=== PATIENT | female | born 2000 | race Caucasian/White ===

== ENCOUNTER 2019-02-24 08:33 | Emergency (ER) | payer OTHER ==
[2019-02-24] MEDS ORDERED: ONDANSETRON 4 MG/2 ML VIAL ONE (09:03)
[2019-02-24] MEDS ORDERED: NA CHLORIDE 0.9% 1,000 ML ONE (09:03)
[2019-02-24 09:18] LABS: Urine Blood NEGATIVE (NEG); Urine Glucose NEGATIVE (NEG); Urine Protein 1+ (NEG); Urine Specific Gravity 1.025 (1.005-1.030)
[2019-02-24 09:22] LABS: Basophils % 2.3 % (0-1.3); Hematocrit 40.2 % (36.0-45.0); Lymphocytes % 49.3 % (15.3-44.8); RBC Red Blood Cell Count 4.59 M/uL (3.86-4.86)
[2019-02-24 09:40] LABS: ALT/SGPT 19 U/L (12-78); AST/SGOT 12 U/L (15-37); Albumin 3.9 g/dL (3.4-5.0); Alkaline Phosphatase 115 U/L (45-117); BUN Blood Urea Nitrogen 9 mg/dL (7-18); Bicarbonate 27 mmol/L (21-32); Bilirubin Direct 0.1 mg/dL (0-0.2); Bilirubin Total 0.4 mg/dL (0.2-1.0); Glucose Level 109 mg/dL (74-106); Lipase 197 U/L (73-393); Potassium 3.7 mmol/L (3.5-5.1); Protein, Total 7.2 g/dL (6.4-8.2); Sodium Level 142 mmol/L (136-145)
--- NOTE | 2019-02-24 11:19 | ER ---
Nurse's Notes [facility] Name: Trudy Barakat Age: 18 yrs Sex: Female : 2000 Arrival Date: 02/24/2019 Time: 08:35 Bed 17 Private MD: Diagnosis: Vomiting;Syncope and collapse Presentation: 02/24 08:47 Presenting complaint: Patient states: has had several weeks where she is vomiting once iw a day, also does not have an appetite, when she does eat something she tends to eat too fast and then vomits, last night she had an episode of dizziness, thought she might be . 08:47 Method Of Arrival: Ambulatory iw 08:47 Transition of care: patient was not received from another setting of care. Onset of iw symptoms was February 24, 2019. Risk Assessment: Do you want to hurt yourself or someone else? Patient reports no desire to harm self or others. Initial Sepsis Screen: Does the patient meet any 2 criteria? No. Patient's initial sepsis screen is negative. Does the patient have a suspected source of infection? No. Patient's initial sepsis screen is negative. Care prior to arrival: None. 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 - Social history:: Smoking status: Patient uses tobacco products, denies chronic smoking, but will smoke occasionally. - Ebola Screening: : Patient negative for fever greater than or equal to 101.5 degrees Fahrenheit, and additional compatible Ebola Virus Disease symptoms Patient denies exposure to infectious person Patient denies travel to an Ebola-affected area in the 21 days before illness onset No symptoms or risks identified at this time. Screenin:00 Abuse screen: Denies threats or abuse. Nutritional screening: No deficits noted. aa5 Tuberculosis screening: No symptoms or risk factors identified. Fall Risk None identified. Assessment: 08:58 General: Appears comfortable, Behavior is calm, cooperative. Pain: Complains of pain in aa5 pelvis Pain does not radiate. Pain currently is 0 out of 10 on a pain scale. Quality of pain is described as sharp, Pain began 1-2 weeks ago Is intermittent. Neuro: Level of Consciousness is awake, alert, obeys commands, Oriented to person, place, time, situation. Cardiovascular: Heart tones S1 S2 present Rhythm is regular. Respiratory: Airway is patent Respiratory effort is even, unlabored, Respiratory pattern is regular, symmetrical. GI: Abdomen is flat, non-distended, Bowel sounds present X 4 quads. Abd is soft and non tender X 4 quads. Reports nausea, vomiting, since 1-2 weeks ago Patient currently denies diarrhea. : No signs and/or symptoms were reported regarding the genitourinary system. EENT: No signs and/or symptoms were reported regarding the EENT system. Derm: Skin is pink, warm \T\ dry. Musculoskeletal: Range of motion: intact in all extremities. 09:20 Reassessment: Patient is alert, oriented x 3, equal unlabored respirations, skin aa5 warm/dry/pink. Patient denies pain at this time. Pt notified of wait time for lab results, NS infusing, lights dimmed for comfort. Bed remains in low position, side rails x 1, call khan within reach. . 10:30 Reassessment: Patient appears in no apparent distress at this time. No changes from aj1 previously documented assessment. Patient and/or family updated on plan of care and expected duration. Pain level reassessed. Patient is alert, oriented x 3, equal unlabored respirations, skin warm/dry/pink. 11:36 Reassessment: Patient appears in no apparent distress at this time. No changes from aj1 previously documented assessment. Patient and/or family updated on plan of care and expected duration. Pain level reassessed. Patient is alert, oriented x 3, equal unlabored respirations, skin warm/dry/pink. Vital Signs: 09:04 BP 113 / 70; Pulse 82; Resp 16 S; Temp 98.2; Pulse Ox 99% on R/A; Pain 0/10; iw 09:27 BP 105 / 64; Pulse 68; Resp 16 S; Pulse Ox 100% on R/A; Pain 0/10; aa5 10:30 BP 103 / 72; Pulse 66; Resp 18; Pulse Ox 100% on R/A; aj1 11:37 BP 100 / 82; Pulse 68; Resp 16; Pulse Ox 100% on R/A; aj1 ED Course: 08:35 Patient arrived in ED. as 08:41 Tyrell Seay PA is PHCP. [facility] 08:41 Say Zuñiga MD is Attending Physician. [facility] 08:43 Kelly Talamantes, LEANNE is Primary Nurse. aa5 08:58 Urine collected: clean catch specimen, clear, and dark yellow. aa5 08:58 Arm band placed on. aa5 08:58 Patient has correct armband on for positive identification. Bed in low position. Call aa5 light in reach. Side rails up X 1. Adult w/ patient. 09:04 Triage completed. iw 09:15 Initial lab(s) drawn, by me, sent to lab. Inserted saline lock: 20 gauge in right em1 antecubital area, using aseptic technique. Blood collected. 10:00 Report given to Richelle Atkinson RN. aa5 11:19 Chavo Torres MD is Referral Physician. [facility] 11:37 No provider procedures requiring assistance completed. aj1 11:55 IV discontinued, intact, bleeding controlled, No redness/swelling at site. Pressure aj1 dressing applied. Administered Medications: 09:17 Drug: NS 0.9% 1000 ml Route: IV; Rate: 1 bolus; Site: right antecubital; aa5 11:36 Follow up: IV Status: Completed infusion; IV Intake: 1000ml aj1 09:17 Drug: Zofran 4 mg Route: IVP; Site: right antecubital; aa5 11:36 Follow up: Response: No adverse reaction; Nausea unchanged aj1 Intake: 11:36 IV: 1000ml; Total: 1000ml. aj1 Outcome: 11:18 Discharge ordered by . jm 11:55 Discharged to home ambulatory. aj1 11:55 Condition: good 11:55 Discharge instructions given to patient, Instructed on discharge instructions, follow up and referral plans. medication usage, Demonstrated understanding of instructions, follow-up care, medications, Prescriptions given X 1. 11:57 Patient left the ED. aj1 Signatures: Richelle Atkinson RN RN aj Tyrell Seay PA PA jmm Martinez, Amelia as Janeth Prado RN RN [facility] Kelly Talamantes, RN RN aa5 Corrections: (The following items were deleted from the chart) 09:30 09:04 Arm band placed on iw aa5
--- NOTE | 2019-02-24 11:19 | EDPHYS ---
Physician Documentation [facility] Name: Trudy Barakat Age: 18 yrs Sex: Female : 2000 Arrival Date: 02/24/2019 Time: 08:35 Bed 17 Private MD: ED Physician Say Zuñiga HPI: 02/24 08:57 This 18 yrs old Female presents to ER via Ambulatory with complaints of jmm Vomiting. 08:57 The patient presents to the emergency department with nausea, vomiting. Onset: The jmm symptoms/episode began/occurred gradually, 2 week(s) ago. Possible causes: unknown. The symptoms are aggravated by nothing. The symptoms are alleviated by nothing. This is a 18 year old female with no chronic medical conditions that presents to the ED with complaints of vomiting beginning weeks ago. Patient states symptoms are intermittent. Denies diarrhea. States she will occasionally develop bilateral pelvic pain. . 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 - Social history:: Smoking status: Patient uses tobacco products, denies chronic smoking, but will smoke occasionally. - Ebola Screening: : Patient negative for fever greater than or equal to 101.5 degrees Fahrenheit, and additional compatible Ebola Virus Disease symptoms Patient denies exposure to infectious person Patient denies travel to an Ebola-affected area in the 21 days before illness onset No symptoms or risks identified at this time. ROS: 08:57 Constitutional: Negative for fever, chills, and weight loss, Cardiovascular: Negative jmm for chest pain, palpitations, and edema, Respiratory: Negative for shortness of breath, cough, wheezing, and pleuritic chest pain. 08:57 Abdomen/GI: Positive for abdominal pain, nausea and vomiting. 08:57 All other systems are negative. Exam: 08:57 Constitutional: This is a well developed, well nourished patient who is awake, alert, jmm and in no acute distress. Head/Face: atraumatic. Eyes: EOMI, no conjunctival erythema appreciated ENT: Moist Mucus Membranes Neck: Trachea midline, Supple Chest/axilla: Normal chest wall appearance and motion. Cardiovascular: Regular rate and rhythm. No edema appreciated Respiratory: Normal respirations, no respiratory distress appreciated 08:57 Back: Normal ROM Skin: General appearance color normal MS/ Extremity: Moves all extremities, no obvious deformities appreciated, no edema noted to the lower extremities Neuro: Awake and alert, normal gait Psych: Behavior is normal, Mood is normal, Patient is cooperative and pleasant 08:57 Abdomen/GI: Inspection: abdomen appears normal, Bowel sounds: normal, Palpation: abdomen is soft and non-tender, in all quadrants. Vital Signs: 09:04 BP 113 / 70; Pulse 82; Resp 16 S; Temp 98.2; Pulse Ox 99% on R/A; Pain 0/10; iw 09:27 BP 105 / 64; Pulse 68; Resp 16 S; Pulse Ox 100% on R/A; Pain 0/10; aa5 10:30 BP 103 / 72; Pulse 66; Resp 18; Pulse Ox 100% on R/A; aj1 11:37 BP 100 / 82; Pulse 68; Resp 16; Pulse Ox 100% on R/A; aj1 MDM: 08:47 Patient medically screened. [facility] 11:16 Data reviewed: vital signs, nurses notes. Counseling: I had a detailed discussion with mirna the patient and/or guardian regarding: the historical points, exam findings, and any diagnostic results supporting the discharge/admit diagnosis, lab results, the need for outpatient follow up, to return to the emergency department if symptoms worsen or persist or if there are any questions or concerns that arise at home. ED course: Abdomen is benign on PE. Patient given early appendicitis return precautions. patient stated she has had multiple syncopal episodes over the past few weeks as well. Denies chest pain, but states having an occasional palpitations. EKG is normal. H/H normal. No SOB. Patient is advised to follow up with cardio for reevaluation and otherwise given strict return precautions. patient understood and agrees with the plan of care. . 02/24 08:57 Order name: Basic Metabolic Panel; Complete Time: 09:44 [facility] 02/24 08:57 Order name: CBC with Diff; Complete Time: 09:26 [facility] 02/24 08:57 Order name: Creatinine for Radiology; Complete Time: 09:36 [facility] 02/24 08:57 Order name: Hepatic Function; Complete Time: 09:44 [facility] 02/24 08:57 Order name: Lipase; Complete Time: 09:44 [facility] 02/24 09:03 Order name: Urine Dipstick--Ancillary (enter results) 02/24 08:57 Order name: IV Saline Lock; Complete Time: 09:15 [facility] 02/24 08:57 Order name: Labs collected and sent; Complete Time: 09:15 [facility] 02/24 08:57 Order name: Urine Dipstick-Ancillary (obtain specimen); Complete Time: 09:00 [facility] 02/24 09:00 Order name: Urine Test (obtain specimen); Complete Time: 09:01 [facility] 02/24 09:03 Order name: Urine --Ancillary (enter results); Complete Time: 09:26 02/24 10:34 Order name: EKG - Nurse/Tech; Complete Time: 11:02 [facility] Administered Medications: 09:17 Drug: NS 0.9% 1000 ml Route: IV; Rate: 1 bolus; Site: right antecubital; aa5 11:36 Follow up: IV Status: Completed infusion; IV Intake: 1000ml [facility] 09:17 Drug: Zofran 4 mg Route: IVP; Site: right antecubital; aa5 11:36 Follow up: Response: No adverse reaction; Nausea unchanged aj1 Disposition: 14:56 Co-signature as Attending Physician, Say Zuñiga MD I agree with the assessment and kdr plan of care. Disposition: 02/24/19 11:18 Discharged to Home. Impression: Vomiting, Syncope and collapse. - Condition is Stable. - Discharge Instructions: Nausea and Vomiting, Adult, Syncope, [id number]. - Prescriptions for Zofran ODT 4 mg Oral tablet,disintegrating - place 1 tablet by TRANSLINGUAL route every 4-6 hours; 20 tablet. - Medication Reconciliation Form, Thank You Letter, Antibiotic Education, Prescription Opioid Use form. - Follow up: Private Physician; When: 2 - 3 days; Reason: Recheck today's complaints, Continuance of care, Re-evaluation by your physician. Follow up: Chavo Torres MD; When: 2 - 3 days; Reason: Recheck today's complaints, Continuance of care, Re-evaluation by your physician. Signatures: Dispatcher [employer] Richelle Felder RN RN aj1 Say Zuñiga MD MD kdr Mickail, Joel, PA PA [facility] Janeth Praod RN RN iw Kelly Talamantes RN RN aa5 Corrections: (The following items were deleted from the chart) 11:19 11:18 02/24/2019 11:18 Discharged to Home. Impression: Vomiting; Syncope and collapse. [facility] Condition is Stable. Forms are Medication Reconciliation Form, Thank You Letter, Antibiotic Education, Prescription Opioid Use. Follow up: Private Physician; When: 2 - 3 days; Reason: Recheck today's complaints, Continuance of care, Re-evaluation by your physician. [facility] 11:57 11:19 02/24/2019 11:18 Discharged to Home. Impression: Vomiting; Syncope and collapse. aj1 Condition is Stable. Discharge Instructions: Nausea and Vomiting, Adult, Syncope, [id number]. Prescriptions for Zofran ODT 4 mg Oral tablet,disintegrating - place 1 tablet by TRANSLINGUAL route every 4-6 hours; 20 tablet. and Forms are Medication Reconciliation Form, Thank You Letter, Antibiotic Education, Prescription Opioid Use. Follow up: Private Physician; When: 2 - 3 days; Reason: Recheck today's complaints, Continuance of care, Re-evaluation by your physician. Follow up: Chavo Torres; When: 2 - 3 days; Reason: Recheck today's complaints, Continuance of care, Re-evaluation by your physician. [facility]
--- NOTE | 2019-02-24 14:26 | EKG ---
Test Date: 2019-02-24 Test Time: 11:04:35 Practice Nurse: LIZY MEASUREMENT RESULTS: Intervals: Rate: 58 SC: 124 QRSD: 84 QT: 412 QTc: 404 [place]: P: 17 SC: 124 QRS: 81 T: 68 INTERPRETIVE STATEMENTS: Sinus bradycardia with sinus arrhythmia Otherwise normal ECG No previous ECG available for comparison Electronically Signed On 02-24-19 14:26:15 CDT by Chavo Torres
== END 2019-02-24 11:57 | disposition home or self-care (01) ==
LOC: ER 08:33
DX: R55 Syncope and collapse (principal); Z72.0 Tobacco use
CPT/HCPCS: 96361; 93005; 85025; 80048; 36415; 81025; 80076; 81003; 83690; 96374; 99284; J7030; J2405

== ENCOUNTER 2020-06-10 07:46 | Emergency (ER) | payer OTHER ==
[2020-06-10] MEDS ORDERED: NA CHLORIDE 0.9% 1,000 ML ONE (08:27)
[2020-06-10 08:40] LABS: Absolute Lymphocytes (CBC) 2.2 K/uL (0.7-4.9); Basophils % 0.9 % (0-1.3); Hematocrit 37.6 % (36.0-45.0); Lymphocytes % 32.6 % (15.3-44.8); MPV 8.8 fL (7.6-11.3); RBC Red Blood Cell Count 4.56 M/uL (3.86-4.86)
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
--- OUTSIDE RECORDS SUMMARY | 2020-06-10 08:42 | XMS REPORT | Summary of Care ---
:2000 Author Organization [facility] Address [address] [place] [address] Care Team Providers Name Role Phone Charisse Prado Primary Care Provider Reason for Visit Reason Comments Lab Results Encounter Details Date Type Department Care Team Description [facility] [facility] [address] [place] [address] [address] [phone] [place], [place] [address] [phone] Allergies Active Allergy Reactions Severity Noted Date [...] 39 weeks gestation of 04/07/2018 05/02/20 18 [place] Hick's contraction 04/06/2018 04/09/2018 Rubella non-immune status, [...] this encounter Miscellaneous Notes Telephone Encounter - Nicolas Kaye RN - 05/07/2020 4:49 PM CDTCalled patient, advised rh- and educated patient on rhogam. Patient verbalized understanding. NICOLAS KAYE RN 05/07/2020 4:49 PM Telephone Encounter - Terri Bess WHCNP - 05/07/2020 2:21 PM CDT Please notify the patient she is RH negative she will need rhogam at 28 weeks and prn vaginal bleeding KAREN Pete 05/07/2020 2:24 PM documented in this encounter Plan of Treatment Date Type Specialty Care Team Description 06/04/2020 Routine Visit [facility] Sapphire Bess WHCNP [address] [place], [place] [address] [phone] Health Maintenance Due Date Last Done Comments MENINGOCOCCAL B VACCINES (1 06/07/2020 Post poned from of 2 - Risk Bexsero 2-dose 09/16 (Refused) series) CHLAMYDIA SCREENING 06/08/2020 06/08/2019, 11/08/2018, 03/22/2018 Depression Screening 05/06/2021 05/06/2020, 06/08/2019 WELL CARE VISIT: 12-05/06/2021 12/26/2012 Postponed from YEARS (yearly) 12/26/2013 (Preg [...] Effective Dates Phone Addre ss Type Group [place] [id number] 2018-[employer]en Medicaid HEALTH PLAN - [facility] MANAGED MEDICAID documented as of this encounter Advance Directives Name Relationship Healthcare Agent Communication Relationship Edwin Rojas Significant Other Health Care Agent Laney Barakat Grandparent [facility] [phone] Care Agent (Mobile)
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
--- OUTSIDE RECORDS SUMMARY | 2020-06-10 08:42 | XMS REPORT | Summary of Care ---
:1999 Author Organization [facility] Address [address] [place] [id number] Care Team Providers Name Role Phone Charisse Prado Primary Care Provider Reason for Referral (Routine) Status Reason Specialty Diagnoses / Referred By Referred To Procedures Contact Contact New Request Maternal Diagnoses Supervision of high risk , antepartum [place], Medicine Procedures CONSULT MATERNAL MEDICINE ULTRASOUND Preferred Location: [facility] [address] [facility] [place] [address] Reason for Visit Reason Comments Initial Visit Encounter Details Date Type Department Care Team Description 05/06/2020 Initial [facility] RMP- [place], Super vision of high risk , antepartum (Primary Dx); Visit [place] Terri Coker [facility] Multiparity; [address] Viral disease exposure; Street History of anxiety; [place], [place] History of depression; [id number] [place], [place] Nausea and vomiting during p regnancy; [phone] [id number] Vaginal yeast infection; [phone] Flu vaccine need Allergies Active Allergy Reactions Severity Noted Date [...] 39 weeks gestation of 04/07/2018 05/02/20 18 [place] Hick's contraction 04/06/2018 04/09/2018 Rubella non-immune status, [...] of this encounter Last Filed Vital Signs Vital Sign Reading Time Taken Comments Blood Pressure 105/72 05/06/2020 1:40 PM CDT Pulse 77 05/06/2020 1:40 PM CDT Temperature 36.7 C (98 F) 05/06/2020 1:40 PM CDT Respiratory Rate 16 05/06/2020 1:40 PM CDT Oxygen Saturation - - Inhaled Oxygen Concentration - - Weight 57.2 kg (126 lb) 05/06/2020 1:40 PM CDT Height 160 cm (5' 3") 05/06/2020 1:40 PM CDT Body Mass Index 22.32 05/06/2020 1:40 PM CDT documented in this encounter Progress Notes Terri Bess, WHIBETH - 05/06/2020 1:30 PM CDT Chief complaint: Chief Complaint Patient presents with Initial Visit HPI CC: Initial Visit Trudy Barakat is a 19 year old, , /White female. Patient's last menstrual period was 03/21/2020 (approximate). She is 6w4d with an suspected IUP. Her Estimated Date of Delivery: 12/26/20. She is being seen today for her first obstetrical visit. She complains today of: Vaginal irritation. She reports vaginal irritation which started 2 week(s) ago. There is associated vaginal discharge. Symptoms are relieved with vaginal creams. She reports no new partner(s). OB History Para Term AB Living 2 1 1 1 SAB TAB Ectopic Multiple Live Births 1 # Outcome Date GA Lbr Myke/2nd Weight Sex Delivery Anes PTL Lv 2 Current 1 Term 04/08/18 40w0d 7 lb 13 oz (3.544 kg) F NORMAL SPONT JOCELYN Histories OB History Para Term AB Living 2 1 1 1 SAB TAB Ectopic Multiple Live Births 1 # Outcome Date GA Lbr Myke/2nd Weight Sex Delivery Anes PTL Lv 2 Current 1 Term 04/08/18 40w0d 7 lb 13 oz (3.544 kg) F NORMAL SPONT JOCELYN Past Medical History: Diagnosis Date ADHD (attention deficit hyperactivity disorder) 11/22/2007 Anemia 01/2018 with , ongoing Anxiety ongoing, not on medication. Depression 2017 ongoing, not on medication. PTSD (post-traumatic stress disorder) 2008 ongoing, not on medication. STD (sexually transmitted disease) chlamydia, treated. Family History Problem Relation Age of Onset Depression Mother Psychiatry Mother No Significant Medical Problems Father Other - see comments Maternal Uncle autism Other - see comments Brother autism No Significant Medical Problems Maternal Aunt No Significant Medical Problems Paternal Aunt No Significant Medical Problems Paternal Uncle No Significant Medical Problems Maternal Grandmother No Significant Medical Problems Maternal Grandfather No Significant Medical Problems Paternal Grandmother No Significant Medical Problems Paternal Grandfather Arthritis NoFHx Asthma NoFHx defects NoFHx Breast Cancer NoFHx Colon Cancer NoFHx Ovarian Cancer NoFHx Uterine Cancer NoFHx Cancer NoFHx Diabetes NoFHx Genetic NoFHx Heart NoFHx High cholesterol NoFHx Hypertension NoFHx Mental retardation NoFHx Neurological NoFHx Osteoporosis NoFHx Family Status Relation Name Status Mo Alive Fa Alive MUnc (Not Specified) Bro Alive MAunt (Not Specified) PAunt (Not Specified) PUnc (Not Specified) MGMo Alive MGFa Alive PGMo Alive PGFa Alive NoFHx (Not Specified) Past Surgical History: Procedure Laterality Date THYROGLOSSAL CYST EXCISION 01/26/2009 Social History Socioeconomic History Marital status: Single Spouse name: Not on file Number of children: Not on file Years of education: Not on file Highest education level: Not on file Occupational History Not on file Social Needs Financial resource strain: Not on file Food insecurity Worry: Not on file Inability: Not on file Transportation needs Medical: Not on file Non-medical: Not on file Tobacco Use Smoking status: Never Smoker Smokeless tobacco: Never Used Tobacco comment: Dad smokes outside only, vapes on occassion Substance and Sexual Activity Alcohol use: Yes Alcohol/week: 1.0 standard drinks Types: 1 Cans of beer per week Comment: once per week Drug use: No Sexual activity: Yes Partners: Male control/protection: None Comment: last intercourse:05/04/2020 Lifestyle Physical activity Days per week: Not on file Minutes per session: Not on file Stress: Not on file Relationships Social connections Talks on phone: Not on file Gets together: Not on file Attends yazdanism service: Not on file Active member of club or organization: Not on file Attends meetings of clubs or organizations: Not on file Relationship status: Not on file Intimate partner violence Fear of current or ex partner: Not on file Emotionally abused: Not on file Physically abused: Not on file Forced sexual activity: Not on file Other Topics Concern Not on file Social History Narrative Pt denies current or past physical, sexual or emotional abuse. Patient states she feels safe at home. Patient lives with in-laws and fiancee. Patient has one dog in the home. Religous preference Muslim. Social History Substance and Sexual Activity Sexual Activity Yes Partners: Male control/protection: None Comment: last intercourse:05/04/2020 Labs Labs are pending. and No visits with results within 3 Month(s) from this visit. Latest known visit with results is: Office Visit on 06/08/2019 Component Date Value C. trachomatis Nucleic A* 06/08/2019 Negative N. gonorrhoeae Nucleic A* 06/08/2019 Negative Radiology Radiology pending. Allergies Trudy is allergic to vyvanse [lisdexamfetamine]. Medications Trudy has a current medication list which includes the following prescription(s): vitafol ultra, promethazine, and terconazole. Review of Systems Constitutional: Negative. HENT: Negative. Eyes: Negative. Respiratory: Negative. Breasts: Negative. Cardiovascular: Negative. Gastrointestinal: Negative. Genitourinary: Positive for vaginal discharge. Musculoskeletal: Negative. Skin: Negative. Neurological: Negative. Psychiatric/Behavioral: Negative. Endocrine: Endocrine negative BP 105/72 (BP Location: Right arm, Patient Position: Sitting, BP CUFF SIZE: Adult Medium) | Pulse 77 | Temp 36.7 C (98 F) (Oral) | Resp 16 | Ht 5' 3" (1.6 m) | Wt 126 lb (57.2 kg) | LMP 03/21/2020 (Approximate) | BMI 22.32 kg/m Pregravid BMI: Could not be calculated Physical Exam Vitals reviewed. Constitutional: She is oriented to person, place, and time. She appears well- developed and well-nourished. Her body habitus is normal. Neck: No tenderness and no mass. No thyroid nodules and no thyromegaly palpated. No neck adenopathy. Cardiovascular: Regular rate and rhythm. No gallop, no friction rub and no murmur auscultated. No peripheral edema present. Pulmonary/Chest: Breath sounds clear to auscultation. Normal inspiratory effort. Abdominal: Abdomen is soft. No mass palpated. No tenderness present. There is no hepatosplenomegaly,splenomegaly or hepatomegaly. There is no rigidity. No hernia palpated or inspected. Neuro/Psychiatric: She has a normal mood and affect. She is oriented to person, place, and time. Skin: No lesion, no rash and no ulceration present. Lymphadenopathy: No neck adenopathy present. No axillary adenopathy present. No inguinal adenopathy present. Breast: Right breast exhibits no mass, no nipple discharge and no tenderness. Left breast exhibits no mass, no nipple discharge and no tenderness. Breasts are symmetrical. Normal left breast and normalright breast Rectal: Rectal exam with normal anal tone. No mass, no external hemorrhoid and no internal hemorrhoid palpated or inspected. External genitalia: Normal external genitalia appropriate for age. Normal hair distribution. No labial lesion. Urethral meatus: Normal urethral meatus size, location and no lesion. No prolapse present. Normal urethral meatus Urethra: Normal urethra. No urethral tenderness, no mass and no urethral scarring palpated. Bladder: Bladder has no fullness, no mass palpated and no tenderness. Normal bladder Vagina:No lesion inspected. Normal estrogen effect. Normal support. Vaginal discharge found. No lesions in the vagina. +budding +vaginal discharge Cervix: Normal cervix. No lesion. No tenderness and no discharge present. Closed thick Uterus: Uterus is normal size, normal contour, normal position and non-tender. Normal uterus Adnexa: Right adnexa without tenderness, ovary enlargement or mass. Left adnexa without tenderness, ovary enlargement or mass. Normal left adnexa and normal right adnexa Anus/perineum: Normal perineum and normal anus. Assessment/Plan Return to clinic in 4 weeks. Patient desires NT study with usg, explained the need for blood draw after usg and again at 15-20 weeks[facility] and she verbalized understanding Supervision of high risk , antepartum (primary encounter diagnosis) Multiparity Comment: initial visit with labs and physical exam Plan: POCT TEST, POCT URINALYSIS W/O SPECIFIC GRAVITY, CBC WITH DIFF, GC & CHLAMYDIA AMPLIFIED ASSAY, HEPATITIS B SURFACE ANTIGEN, HIV 1/2 AG-AB WITH REFLEX, POCT URINALYSIS W SPECIFIC GRAVITY, WORKUP, BLOOD BANK, RUBELLA SCREEN (CHELLY) IGG, GALV ONLY - SYPHILIS IGG/IGM, URINE CULTURE, VZV ANTIBODY SCREEN, CONSULT MATERNAL MEDICINE ULTRASOUND Preferred Location: [place], [facility] 67-iron ps-folate no.1-dha (VITAFOL ULTRA) 29 mg iron- 1 mg-200 mg Cap Viral disease exposure Comment: as ordered Plan: SARS-COV-2 IGG History of anxiety History of depression Comment: reports stable mood Plan: as needed mgmt Nausea and vomiting during Comment: reports Plan: proMETHazine 25 mg tablet Vaginal yeast infection Comment: +budding Plan: terconazole 80 mg vaginal suppository Flu vaccine need Comment: as ordered Plan: FLU VACC(), 6+ MONTHS, IM, QUAD (FLUZONE/FLULAVAL/FLUARIX) This visit did not involve counseling and coordination that comprised more than 50% of the visit time. KAREN Pete 05/06/2020 2:33 PM Nicolas Kaye RN - 05/06/2020 1:30 PM CDTPatient is 19 year old female here for current . Patient is . 1) Previous delivery methods Vaginal 2) Patient is not experiencing cramping 3) Patient is not experiencing bleeding. 4) LMP 03/21/2020 5) Last Pap was: never Results: N/a 6) PPD candidate? No 7) Patient denies history of physical, emotional, or sexual abuse. Patient states she currently feels safe at home. 8) C/O patient having nausea and vomiting, constipation and recurrent yeast infection. 9) Would like flu vaccine? No, declines New ob packet given and discussed with patient. NICOLAS KAYE RN 05/06/2020 1:52 PM documented in this encounter Plan of Treatment Date Type Specialty Care Team Description 06/04/2020 Routine Visit OB Satellites Sapphire Bess WHCNP [address], [place] [address] [phone] Name Type Priority Associated Diagnoses Date/Ti me SARS-COV-2 IGG LAB Routine Viral disease exposure 2:40 PM CDT CBC WITH DIFF LAB Routine Supervision of high risk 2:40 PM CDT , antepartum GC & CHLAMYDIA LAB Routine Supervision of high risk 1 3:01 PM CDT AMPLIFIED ASSAY , antepartum HEPATITIS B SURFACE LAB Routine Supervision of high r isk 05/06/2020 2:40 PM CDT ANTIGEN , antepartum HIV 1/2 AG-AB WITH LAB Routine Supervision of high ri sk 05/06/2020 2:40 PM CDT REFLEX , antepartum RUBELLA SCREEN ([place]LLY) LAB Routine Supervision of hig h risk 05/06/2020 2:40 PM CDT IGG , antepartum GALV ONLY - SYPHILIS LAB Routine Supervision of high risk 05/06/2020 2:40 PM CDT IGG/IGM , antepartum URINE CULTURE LAB Routine Supervision of high risk 3:01 PM CDT , antepartum VZV ANTIBODY SCREEN LAB Routine Supervision of high r isk 05/06/2020 2:40 PM CDT , antepartum Name Type Priority Associated Diagnoses Order S chedule SARS-COV-2 IGG LAB Routine Viral disease exposure Exp ected: 05/06/2020, Expires: 2020 CBC WITH DIFF LAB Routine Supervision of high risk Ex pected: 05/06/2020, , antepartum s: 05/06/2021 GC & CHLAMYDIA LAB Routine Supervision of high risk E xpected: 05/06/2020, AMPLIFIED ASSAY , antepartum Exp ires: 05/06/2021 HEPATITIS B SURFACE LAB Routine Supervision of high r isk Expected: 05/06/2020, ANTIGEN , antepartum s: 05/06/2021 HIV 1/2 AG-AB WITH LAB Routine Supervision of high ri sk Expected: 05/06/2020, REFLEX , antepartum s: 05/06/2021 POCT URINALYSIS W LAB Routine Supervision of high ris k 20 Occurrences starting SPECIFIC GRAVITY , antepartum until 03/02/2021 WORKUP, BLOOD LAB Routine Supervision of hig h risk Expected: 05/06/2020, BANK , antepartum s: 05/06/2021 RUBELLA SCREEN ([place]LLY) LAB Routine Supervision of hig h risk Expected: 05/06/2020, IGG , antepartum s: 05/06/2021 GALV ONLY - SYPHILIS LAB Routine Supervision of high risk Expected: 05/06/2020, IGG/IGM , antepartum s: 05/06/2021 URINE CULTURE LAB Routine Supervision of high risk Ex pected: 05/06/2020, , antepartum s: 05/06/2021 VZV ANTIBODY SCREEN LAB Routine Supervision of high r isk Expected: 05/06/2020, , antepartum s: 05/06/2021 Health Maintenance Due Date Last Done Comments [...] Name Priority Date/Time Associated Diagnosis Comme nts FLU VACC Routine 05/06/2020 2:33 Flu vaccine need ([id number]), 6+ PM CDT MONTHS, IM, QUAD POCT URINALYSIS W/O Routine 05/06/2020 1:23 Supervision of hi gh Results for this SPECIFIC GRAVITY PM CDT risk , procedur e are in antepartum the results section. POCT TEST Routine 05/06/2020 1:23 Supervision of hi gh Results for this PM CDT risk , procedure ar e in antepartum the results section. documented in this encounter Results POCT URINALYSIS W/O SPECIFIC GRAVITY (05/06/2020 1:23 PM CDT) Pathologist Sig nature POCT PH U 7 5 - 8 mg/dl POCT U LEUK EST 2+ Negative - Negative POCT U NIT Neg Negative - Negative POCT U PROT Trace Negative - Negative POCT U GLU Neg Negative - Negative POCT U KETONE Large Negative - Negative POCT U BLD Trace Negative - Negative Specimen Urine - URINE, CLEAN CATCH POCT TEST (05/06/2020 1:23 PM CDT) Pathologist Sig nature POCT PREG Positive On board controls acceptable Yes with C Line POCT PREG LOT # POCT PREG TEST DATE Specimen Urine - URINE, CLEAN CATCH documented in this encounter Visit Diagnoses Diagnosis Supervision of high risk , ante - Primary Multiparity Viral disease exposure Contact with or exposure to other viral diseases History of anxiety Personal history of other mental disorde r History of depression Personal history of other mental disorde r Nausea and vomiting during Vaginal yeast infection Candidiasis of vulva and vagina Flu vaccine need Need for prophylactic vaccination and in oculation against influenza documented in this encounter Insurance Payer Benefit Plan / Subscriber ID Effective Dates Phone Addre ss Type Group [place] [employer] [place] [id number] 2018-Presen Medicaid HEALTH PLAN - HEALTH MANAGED MEDICAID documented as of this encounter Advance Directives Name Relationship Healthcare Agent Communication Relationship Edwin Rojas Significant Other Health Care Agent Laney Barakat Grandparent [facility] [phone] Care Agent (Mobile)
--- OUTSIDE RECORDS SUMMARY | 2020-06-10 08:43 | XMS REPORT | Summary of Care ---
:2000 Author Organization [facility] Address [address] [place] [id number] Care Team Providers Name Role Phone Charisse Prado Primary Care Provider Reason for Visit Reason Comments Care Encounter Details Date Type Department Care Team Description 06/04/[address] [facility]- [place], Super vision of high risk , antepartum (Primary Dx); Visit [place] Terri Coker, WHCNP Multiparity; [address] Suscep tible to varicella (non-immune), currently ; [facility] Rubella non-immune status, antepartum; [place], [place] SHARIF A Rh negative state in antepartum period [id number] [place], [place] [phone] Allergies Active Allergy Reactions Severity Noted Date Comments Lisdexamfetamine Other - See comments 12/26/2012 Zeina cidal ideation documented as of this encounter (statuses as of 06/04/2020) Medications Medication Sig Dispensed Refills Start Date End Date Status proMETHazine 25 mg Take 1 tablet by 30 tablet 0 05/06/2020 Active tabletIndications: mouth every 6 Nausea and vomiting (six) hours as during needed for Nausea and Vomiting (N/V). PNV 67-iron ps-folate Take 1 Each by 30 capsule 9 05/06/2020 Active no.1-dha (VITAFOL mouth daily. ULTRA) 29 mg iron- 1 mg-200 mg CapIndications: Supervision of high risk , antepartum documented as of this encounter (statuses as of 06/04/2020) Active Problems Problem Noted Date Rh negative [...] as of this encounter (statuses as of 06/04/2020) Resolved Problems Problem Noted Date Resolved Date Well woman exam 06/08/2019 05/06/2020 Contraceptive management 06/08/2019 05/06/2020 Lactating mother 02/02/2019 06/08/2019 Vaginal discharge 11/08/2018 02/02/2019 care and examination of lactating mother 05/02/20 18 02/02/2019 Normal spontaneous vaginal delivery 04/09/201804/18 Liveborn by vaginal delivery 04/09/201804/18 39 weeks gestation of 04/07/2018 05/02/20 18 Mozier Hick's contraction 04/06/2018 04/09/2018 Rubella non-immune status, antepartum 03/23/2018 Overview: Address in Maternal varicella, non-immune 03/23/2018 8 Overview: Address in Supervision of high risk , antepartum 03/22/2018 05/02/2018 Nausea and vomiting during 03/22/2018 Primigravida in third trimester 03/22/2018 05/24/20 18 Rh negative state in antepartum period, third trimester 10/201705/24/2018 documented as of this encounter (statuses as of 06/04/2020) Immunizations Name Administration Dates Next Due DTAP [...] been in contact with No / Unsure 06/04/2020 9:27 AM PUBLISHER ASSISTANT someone who was confirmed or suspected to have Coronavirus / COVID-19? documented as of this encounter Last Filed Vital Signs Vital Sign Reading Time Taken Comments Blood Pressure 119/75 06/04/2020 9:27 AM PUBLISHER ASSISTANT Pulse 83 06/04/2020 9:27 AM PUBLISHER ASSISTANT Temperature 37.2 C (98.9 F) 06/04/2020 9:27 AM PUBLISHER ASSISTANT Respiratory Rate 16 06/04/2020 9:27 AM PUBLISHER ASSISTANT Oxygen Saturation - - Inhaled Oxygen Concentration - - Weight 57.2 kg (126 lb) 06/04/2020 9:27 AM PUBLISHER ASSISTANT Height 160 cm (5' 3") 06/04/2020 9:27 AM PUBLISHER ASSISTANT Body Mass Index 22.32 06/04/2020 9:27 AM PUBLISHER ASSISTANT documented in this encounter Progress Notes Terri Bess, WHCNP - 06/04/2020 9:15 AM CST Chief complaint: Chief Complaint Patient presents with Care HPI CC: Follow Up Visit Trudy Barakat is a 19 year old, , /White female. Patient's last menstrual period was 03/21/2020 (approximate). She is 10w5d with an intrauterine . Her estimated date of delivery is 12/26/2020, by Last Menstrual Period. She has no complaints today. Histories OB History Para Term AB Living [...] ongoing Anxiety ongoing, not on medication. Depression 2016 ongoing, not on medication. PTSD (post-traumatic stress disorder) 2007 ongoing, not on medication. STD (sexually transmitted [...] file Gets together: Not on file Attends mosque service: Not on file Active member of [...] one dog in the home. Religous preference [employer]. Social History Substance and Sexual Activity Sexual Activity Yes Partners: Male control/protection: None Comment: last intercourse:05/04/2020 Labs No new labs and Initial Visit on 05/06/2020 Component Date Value POCT PREG 05/06/2020 Positive On board controls accept* 05/06/2020 Yes POCT PH U 05/06/2020 7 POCT U LEUK EST 05/06/2020 2+ POCT U NIT 05/06/2020 Neg POCT U PROT 05/06/2020 Trace POCT U GLU 05/06/2020 Neg POCT U KETONE 05/06/2020 Large POCT U BLD 05/06/2020 Trace ABO & RH 05/06/2020 B NEGATIVE IAT 05/06/2020 Negative CoV-2 IgG 05/06/2020 Negative WBC 05/06/2020 5.79 RBC 05/06/2020 4.19 HGB 05/06/2020 11.6 HCT 05/06/2020 36.2 MCV 05/06/2020 86.4 MCH 05/06/2020 27.7 MCHC 05/06/2020 32.0 RDW-SD 05/06/2020 44.5 RDW-CV 05/06/2020 14.1 PLT 05/06/2020 302 MPV 05/06/2020 11.0 NRBC/100 WBC 05/06/2020 0.0 NRBC x10^3 05/06/2020 <0.01 GRAN MAT (NEUT) % 05/06/2020 49.3 IMM GRAN % 05/06/2020 0.20 LYMPH % 05/06/2020 39.6 MONO % 05/06/2020 7.9 EOS % 05/06/2020 2.1 BASO % 05/06/2020 0.9 GRAN MAT x10^3(ANC) 05/06/2020 2.86 IMM GRAN x10^3 05/06/2020 <0.03 LYMPH x10^3 05/06/2020 2.29 MONO x10^3 05/06/2020 0.46 EOS x10^3 05/06/2020 0.12 BASO x10^3 05/06/2020 0.05 C. trachomatis Nucleic A* 05/06/2020 Negative N. gonorrhoeae Nucleic A* 05/06/2020 Negative HBsAg 05/06/2020 Negative HBsAg Semi-Quantitative 05/06/2020 0.08 HIV 1/2 Ag-Ab with Reflex 05/06/2020 Negative HIV Semi-quantitative 05/06/2020 0.11 Rubella screen IgG 05/06/2020 Equivocal Syphilis IgG/IgM 05/06/2020 Non-reactive URINE CULTURE 05/06/2020 > 100,000 CFU/mL mixed aerobic organisms - suggests endogenous microbial contamination VZV IgG antibody 05/06/2020 Negative COVID DMT Interpretation 05/06/2020 Value:Interpretation/Recommendation Tests (PCR) for Active Infection by COVID-19 Virus: This patient was never tested for an active COVID-19 infection by PCR. Tests for IgM and/or IgG Antibodies to COVID-19 Virus: A. A test for IgM antibody to the COVID-19 virus would be highly informative at this time. IgM antibodies to the COVID-19 virus identified in a high performing test, usually an CHELLY or chemiluminescence based assay, should appear in most patients who are truly infected within approximately one week from the onset of symptoms, and in nearly all patients by to three weeks after symptoms begin. If the IgM test is positive, it is highly probable that the patient has been infected with the virus at some point. IgM antibodies may have developed since the first IgG antibody test was performed. B. A blood sample collected from this patient revealed a negative test for IgG antibodies to theCOVID-19 virus. If the patient experienced symptoms more than 2 to 3 weeks earlier, this most likely indicates that the patient was not infected with the COVID-19 virus. C. IgG antibodies to the COVID-19 virus often appear after the presence of IgM antibodies. Therefore, another possible explanation is that it may be too early in the course of this patient's infection for the IgG response to occur if symptoms were within the past 2 to 3 weeks. It would be informative to test the patient at least 3 to 4 weeks post onset of symptoms for both IgG and IgM antibodies.IgM antibodies may have developed since the first IgG antibody test was performed. At this time, it is not known if production of antibodies indicates whether the patient is immune to future infectionswith the COVID-19 virus. D. Some patients who have been positive for COVID-19 with a nasopharyngeal swab specimen do not generate IgG antibodies to the virus. It is possible that patients with a positive PCR test who have no symptoms or mild symptoms do not generate antibodies. It is also possible that the antibodies were not detected because they were not present at the time the blood sample was taken. E. Although it is uncommon, some patients cannot ever mount an antibody response to infectious agents, such as COVID-19. If there are persistently negative results for IgM and IgG antibodies, thismay be the explanation. COVID Results 05/06/2020 CoV-2 IgG (no units) Date Value 05/06/2020 Negative Radiology No new radiology. Allergies Trudy is allergic to vyvanse [lisdexamfetamine]. Medications Trudy has a current medication list which includes the following prescription(s): vitafol ultra and promethazine. Review of Systems Constitutional: Negative. HENT: Negative. Eyes: Negative. Respiratory: Negative. Breasts: Negative. Cardiovascular: Negative. Gastrointestinal: Negative. Genitourinary: Negative. Musculoskeletal: Negative. Skin: Negative. Neurological: Negative. Psychiatric/Behavioral: Negative. Endocrine: Endocrine negative BP 119/75 (BP Location: Right arm, Patient Position: Sitting, BP CUFF SIZE: Adult Medium) | Pulse 83 | Temp 37.2 C (98.9 F) (Oral) | Resp 16 | Ht 5' 3" (1.6 m) | Wt 126 lb (57.2 kg) | LMP 03/21/2020 (Approximate) | BMI 22.32 kg/m Pregravid BMI: Could not be calculated Physical Exam PHYSICAL: General Exam: Neurological: Normal Abdomen: Normal gravid Extremities: Normal Pelvic Exam: Uterus: 8 Weeks Assessment/Plan Return to clinic in 4 weeks. Denies zika virus risk, signs and symptoms such as fever,rash,joint pain, conjunctivitis (red eyes),muscle pain, headaches; outside [place] travel to areas affected by zika, and FOB exposure to zika. Educated on use of mosquito repellent. Supervision of high risk , antepartum (primary encounter diagnosis) Multiparity Comment: routine Plan: POCT URINALYSIS W SPECIFIC GRAVITY Susceptible to varicella (non-immune), currently Rubella non-immune status, antepartum Comment: no mgmt today Plan: address pp Rh negative state in antepartum period Comment: Plan: address 28 weeks This visit did not involve counseling and coordination that comprised more than 50% of the visit time. KAREN Pete 06/04/2020 9:47 AM ISHER ASSISTANT documented in this encounter Plan of Treatment Date Type Specialty Care Team Description 06/17/2020 Home School Liaison Officer Visit Maternal Medicine 06/17/2020 Home School Liaison Officer Visit [facility], [facility] 07/02/2020 Routine Visit [facility] Sapphire Bess WHCNP [address], [place] [address] [phone] Health Maintenance Due Date Last Done Comments MENINGOCOCCAL B VACCINES (1 06/07/2020 Post poned from of 2 - Risk Bexsero 2-dose 09/16 (Refused) series) CHLAMYDIA SCREENING 05/06/2021 05/06/2020, 06/08/2019, 11/08/2018, Additional history exists Depression Screening 05/06/2021 05/06/2020, 06/08/2019 WELL CARE [...] Name Priority Date/Time Associated Diagnosis Comme nts POCT URINALYSIS Routine 06/04/2020 9:28 AM Supervision of [facility] Results for this PUBLISHER ASSISTANT risk , procedure ar e in antepartum the results section. documented in this encounter Results POCT URINALYSIS W SPECIFIC GRAVITY (06/04/2020 9:28 AM PUBLISHER ASSISTANT) Pathologist Sig nature POCT U SP GRAV . 1.005 - 1.025 mg/dl POCT PH U . 5 - 8 mg/dl POCT U LEUK EST . Negative - Negative POCT U NIT . Negative - Negative POCT U PROT Trace Negative - Negative POCT U GLU Neg Negative - Negative POCT U KETONE . Negative - Negative POCT U UROBILI . 0.2 - 1 mg/dl POCT U BILI . Negative - Negative POCT U BLD . 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
--- OUTSIDE RECORDS SUMMARY | 2020-06-10 08:43 | XMS REPORT | Summary of Care ---
:2000 Author Organization [facility] Address [address] [place] [address] Care Team Providers Name Role Phone Charisse Prado Primary Care Provider Reason for Visit Reason Comments Assessment Results Encounter Details Date Type Department Care Team Description 05/24/2020 Telephone [facility]- Terri Bess, Assessment; Results [facility] [address] [place] [address] [address] [place] [address] [phone] Allergies Active Allergy Reactions Severity Noted Date Comments Lisdexamfetamine Other - See comments 12/26/2012 Zeina cidal ideation documented as of this encounter (statuses as of 05/24/2020) Medications Medication Sig Dispensed Refills Start Date [...] as of this encounter (statuses as of 05/24/2020) Active Problems Problem Noted Date Rh negative [...] as of this encounter (statuses as of 05/24/2020) Resolved Problems Problem Noted Date Resolved Date [...] as of this encounter (statuses as of 05/24/2020) Immunizations Name Administration Dates Next Due DTAP [...] Telephone Encounter - Nicolas Kaye RN - 05/24/2020 11:46 AM CSTCalled patient, patient having tiredness and fatigue. Reviewed labs, advised not anemic. Educated on taking vitamins and encouraged iron rich foods/vitamin c. Advised symptoms normal in and advised 1 cup of coffee can be consumed daily. Patient verbalized understanding. NICOLAS KAYE RN 05/24/2020 11:47 AM T BLANKER Telephone Encounter - LETY Dupont - 05/24/2020 10:45 AM CSTPt is requesting call back, states she is very tired and wants to know what blood results from labs. Please call [phone] (home) documented in this encounter Plan of Treatment Date Type Specialty Care Team Description 06/04/2020 [facility] [address], [place] [address] [phone] 06/17/2020 Community Organization Aide Visit Maternal Medicine 06/17/2020 Community Organization Aide [facility] Maintenance Due Date Last Done Comments [...] Effective Dates Phone Addre ss Type Group [place] [facility] [place] [facility] [id number] 2018-[employer] Medicaid HEALTH PLAN - [facility] MANAGED MEDICAID documented as of this encounter Advance Directives Name Relationship Healthcare Agent Communication Relationship Edwin Rojas Significant Other Health Care Agent Laney Barakat Grandparent [facility] Care Agent (Mobile)
[2020-06-10 09:14] LABS: BUN Blood Urea Nitrogen 6 mg/dL (7-18); Bicarbonate 26 mmol/L (21-32); Glucose Level 103 mg/dL (74-106); HCG, Quantitative 6906 mIU/mL (1-3); Potassium 3.8 mmol/L (3.5-5.1); Sodium Level 137 mmol/L (136-145)
[2020-06-10 09:15] LABS: Urine Blood NEGATIVE (NEG); Urine Glucose NEGATIVE (NEG); Urine Protein NEGATIVE (NEG); Urine Specific Gravity >1.030 (1.005-1.030)
--- NOTE | 2020-06-10 10:02 | RAD REPORT ---
EXAM DESCRIPTION: US - Transvaginal OB - 06/10/2020 9:39 am CLINICAL HISTORY: ABD CRAMPING, COMPARISON: OB Complete dated 03/03/2018 FINDINGS: A single gestational sac is seen within the uterus. The gestational sac is somewhat large in size and mildly irregularly-shaped. No definitive yolk sac or embryo or other components see n within the sac. The maternal adnexa are within normal limits. The left ovary was obscured by bowel gas. The right ova ry measures 4.0 x 3.0 cm. Normal blood flow seen to the right ovary. IMPRESSION: Large gestational sac is noted without yolk sac or embryo detected. This could indicate a blighted ovum. However, follow-up ultrasound would be recommended in 7 days as well as serial HCG l evel measurements for further assessment.
--- NOTE | 2020-06-10 10:35 | ER ---
Nurse's Notes [facility] Name: Trudy Barakat Age: 19 yrs Sex: Female : 2000 Arrival Date: 06/10/2020 Time: 07:47 Bed 8 Private MD: Diagnosis: Threatened ;Blighted ovum and nonhydatidiform mole;Missed Presentation: 06/10 08:03 Chief complaint: Patient states: is approx 11 weeks , started having some iw cramping yesterday, having bleeding after sex this morning and now is having a lot of pressure, bleeding is a little more than a period , pain 7/10, G2, P1. Coronavirus screen: At this time, the client does not indicate any symptoms associated with coronavirus-19. Ebola Screen: Patient negative for fever greater than or equal to 101.5 degrees Fahrenheit, and additional compatible Ebola Virus Disease symptoms Patient denies exposure to infectious person. Patient denies travel to an Ebola-affected area in the 21 days before illness onset. No symptoms or risks identified at this time. Initial Sepsis Screen: Does the patient meet any 2 criteria? No. Patient's initial sepsis screen is negative. Does the patient have a suspected source of infection? No. Patient's initial sepsis screen is negative. Risk Assessment: Do you want to hurt yourself or someone else? Patient reports no desire to harm self or others. Onset of symptoms was June 09, 2020. 08:03 Method Of Arrival: Ambulatory iw 08:03 Acuity: BRIGIDO 3 iw TRAFFIC CONTROL SUPERVISOR: 08:10 2, Full Term 1, Premature 0, 0, Living 1, LMP 03/21/2020 vg1 10:30 2, Full Term 1, Premature 0, 0, Living 1 tad Historical: - Allergies: 08:06 No Known Allergies; iw - Home Meds: 08:06 oral oral daily [Active]; iw - PMHx: 08:06 None; iw - PSHx: 08:06 None; iw - Immunization history:: Adult Immunizations up to date. - Social history:: Smoking status: Patient denies any tobacco usage or history of. - Family history:: not pertinent. Screenin:10 Abuse screen: Denies threats or abuse. Nutritional screening: No deficits noted. vg1 Tuberculosis screening: No symptoms or risk factors identified. Fall Risk No fall in past 12 months (0 pts). No secondary diagnosis (0 pts). IV access (20 points). Ambulatory Aid- None/Bed Rest/Nurse Assist (0 pts). Gait- Normal/Bed Rest/Wheelchair (0 pts) Mental Status- Oriented to own ability (0 pts). Total Simpson Fall Scale indicates No Risk (0-24 pts). Assessment: 08:10 General: Appears in no apparent distress. Behavior is anxious, crying, Reports fatigue vg1 for 12-24 hours. Pain: Complains of pain in lower abdomen Pain currently is 7 out of 10 on a pain scale. Quality of pain is described as crampy, pressure, Pain began cramping began yesterday 06/09/2020. Stated bleeding and pressure began this morning after having intercourse. Neuro: Level of Consciousness is awake, alert, obeys commands, Oriented to person, place, time, situation. Cardiovascular: Capillary refill < 3 seconds Patient's skin is warm and dry. Respiratory: Airway is patent Respiratory effort is even, unlabored, Respiratory pattern is regular, symmetrical. GI: Abd is non tender Reports cramping, nausea, Patient currently denies diarrhea. : No signs and/or symptoms were reported regarding the genitourinary system. EENT: No signs and/or symptoms were reported regarding the EENT system. Derm: Skin is pink, warm \T\ dry. Musculoskeletal: Range of motion: intact in all extremities. 08:52 Reassessment: Patient reports 'slight tingling and numbness' in DANNA hands and DANNA feet. vg1 Patient also states 'feels pressure' near her bottom. Notified Provider. 08:58 Reassessment: Pt taken to US. vg1 09:40 Reassessment: No changes from previously documented assessment. Patient and/or family vg1 updated on plan of care and expected duration. Pain level reassessed. Patient is alert, oriented x 3, equal unlabored respirations, skin warm/dry/pink. Patient back from US. Patient states having lower back pain that radiates down to right leg. Notified Provider. 10:35 Reassessment: No changes from previously documented assessment. Patient and/or family vg1 updated on plan of care and expected duration. Pain level reassessed. Patient is alert, oriented x 3, equal unlabored respirations, skin warm/dry/pink. Pending d/c due to awaiting RhoGAM from pharmacy. 11:53 Reassessment: Patient stated that she called her doctors office and they said for her vg1 to come in and they will give her the RohGAM. Patient was notified that it would take about another hour for it to be ready, and patient stated she didn't want to wait much longer since the doctor's office stated they would give it to her once she showed up. Patient stated she was going straight to doctor's office from ED. Provider notified. Vital Signs: 08:00 BP 110 / 72; Pulse 79; Resp 16; Pulse Ox 97% on R/A; vg1 08:03 BP 110 / 72; Pulse 79; Resp 16; Temp 98.0; Pulse Ox 98% on R/A; Pain 7/10; iw 09:37 BP 106 / 78; Pulse 85; Resp 18; Pulse Ox 99% on R/A; vg1 10:00 BP 97 / 70; Pulse 80; Resp 18; Pulse Ox 100% on R/A; vg1 10:30 BP 115 / 89; Pulse 104; Resp 18; Pulse Ox 100% on R/A; vg1 11:00 BP 106 / 76; Pulse 84; Resp 18; Pulse Ox 100% on R/A; vg1 ED Course: 07:47 Patient arrived in ED. ag5 07:58 Mirella Jimenez, RN is Primary Nurse. vg1 08:05 Gualberto Nolen MD is Attending Physician. tad 08:06 Triage completed. iw 08:06 Arm band placed on. iw 08:08 Radiology exam delayed due to test not completed at this time. aa4 08:20 Inserted saline lock: 20 gauge in right antecubital area, using aseptic technique. vg1 Blood collected. 08:25 Initial lab(s) drawn, by me, sent to lab. Urine collected: clean catch specimen, wilfrido vg1 colored. 08:30 Patient has correct armband on for positive identification. Bed in low position. Call vg1 light in reach. Adult w/ patient. Pulse ox on. NIBP on. Door closed. Warm blanket given. 09:36 US Transvaginal Ob In Process Unspecified. EDMS 09:51 Repeat lab(s) drawn. by me, sent to lab. vg1 10:33 Preet Fernando MD is Referral Physician. [facility] 11:55 No provider procedures requiring assistance completed. IV discontinued, intact, aa5 bleeding controlled, No redness/swelling at site. Pressure dressing applied. Administered Medications: 08:25 Drug: NS 0.9% 1000 ml Route: IV; Rate: 1 bolus; Site: right antecubital; vg1 10:30 Follow up: IV Status: Completed infusion; IV Intake: 1000ml vg1 11:53 Not Given (Patient Refused): RhoGAM (Human) 300 mcg IM once vg1 Intake: 10:30 IV: 1000ml; Total: 1000ml. vg1 Outcome: 10:34 Discharge ordered by . [facility] 12:00 Discharged to home via wheelchair, with significant other. aa5 12:00 Condition: stable 12:00 Discharge instructions given to patient, Instructed on discharge instructions, follow up and referral plans. medication usage, Demonstrated understanding of instructions, follow-up care, medications, Prescriptions given X 1. 12:04 Patient left the ED. vg1 Signatures: Dispatcher [employer] EDMS Gualberto Nolen MD MD cha Williams, Irene, RN RN Alice Saenz aa4 Kelly Talamantes RN RN aa5 Vasquez Rodríguez ag5 Mirella Jimenez, RN RN vg1 Corrections: (The following items were deleted from the chart) 08:11 08:03 BP 110 / 72; Resp 16bpm; Pulse Ox 98% RA; Temp 98.0F; Pain 7/10; [facility] 12:03 11:53 Reassessment: Patient stated that she called her doctors office and they said for vg1 her to come in and they will give her the RohGAM. Provider notified. vg1
--- NOTE | 2020-06-10 10:35 | EDPHYS ---
Physician Documentation [facility] Name: Trudy Barakat Age: 19 yrs Sex: Female : 2000 Arrival Date: 06/10/2020 Time: 07:47 Bed 8 Private MD: LUZ Physician Gualberto Nolen HPI: 06/10 10:30 This 19 yrs old Female presents to ER via Ambulatory with complaints of tad Abdominal Cramping, Vaginal Bleeding, + Preg <12wks. 10:30 The patient presents to the emergency department with vaginal bleeding, that is light. tad The estimated gestational age is 6 weeks. course: care: at a clinic. Previous pregnancies: in previous pregnancies patient has had vaginal delivery. Associated signs and symptoms: The patient has no apparent associated signs or symptoms. The patient has not experienced similar symptoms in the past. 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 - Social history:: Smoking status: Patient denies any tobacco usage or history of. - Family history:: not pertinent. ROS: 10:30 Constitutional: Negative for fever, chills, and weight loss, Eyes: Negative for injury, tad pain, redness, and discharge, ENT: Negative for injury, pain, and discharge, Neck: Negative for injury, pain, and swelling, Cardiovascular: Negative for chest pain, palpitations, and edema, Respiratory: Negative for shortness of breath, cough, wheezing, and pleuritic chest pain, Abdomen/GI: Negative for abdominal pain, nausea, vomiting, diarrhea, and constipation, Back: Negative for injury and pain, MS/Extremity: Negative for injury and deformity, Skin: Negative for injury, rash, and discoloration, Neuro: Negative for headache, weakness, numbness, tingling, and seizure, Psych: Negative for depression, anxiety, suicide ideation, homicidal ideation, and hallucinations, Allergy/Immunology: Negative for hives, rash, and allergies, Endocrine: Negative for neck swelling, polydipsia, polyuria, polyphagia, and marked weight changes, Hematologic/Lymphatic: Negative for swollen nodes, abnormal bleeding, and unusual bruising. 10:30 : Positive for vaginal bleeding. Exam: 10:30 Constitutional: This is a well developed, well nourished patient who is awake, alert, tad and in no acute distress. Head/Face: Normocephalic, atraumatic. Eyes: Pupils equal round and reactive to light, extra-ocular motions intact. Lids and lashes normal. Conjunctiva and sclera are non-icteric and not injected. Cornea within normal limits. Periorbital areas with no swelling, redness, or edema. ENT: Nares patent. No nasal discharge, no septal abnormalities noted. Tympanic membranes are normal and external auditory canals are clear. Oropharynx with no redness, swelling, or masses, exudates, or evidence of obstruction, uvula midline. Mucous membranes moist. Neck: Trachea midline, no thyromegaly or masses palpated, and no cervical lymphadenopathy. Supple, full range of motion without nuchal rigidity, or vertebral point tenderness. No Meningismus. Chest/axilla: Normal chest wall appearance and motion. Nontender with no deformity. No lesions are appreciated. Cardiovascular: Regular rate and rhythm with a normal S1 and S2. No gallops, murmurs, or rubs. Normal PMI, no JVD. No pulse deficits. Respiratory: Lungs have equal breath sounds bilaterally, clear to auscultation and percussion. No rales, rhonchi or wheezes noted. No increased work of breathing, no retractions or nasal flaring. Abdomen/GI: Soft, non-tender, with normal bowel sounds. No distension or tympany. No guarding or rebound. No evidence of tenderness throughout. Back: No spinal tenderness. No costovertebral tenderness. Full range of motion. Skin: Warm, dry with normal turgor. Normal color with no rashes, no lesions, and no evidence of cellulitis. MS/ Extremity: Pulses equal, no cyanosis. Neurovascular intact. Full, normal range of motion. Neuro: Awake and alert, GCS 15, oriented to person, place, time, and situation. Cranial nerves II-XII grossly intact. Motor strength 5/5 in all extremities. Sensory grossly intact. Cerebellar exam normal. Normal gait. Vital Signs: 08:00 BP 110 / 72; Pulse 79; Resp 16; Pulse Ox 97% on R/A; vg1 08:03 BP 110 / 72; Pulse 79; Resp 16; Temp 98.0; Pulse Ox 98% on R/A; Pain 7/10; iw 09:37 BP 106 / 78; Pulse 85; Resp 18; Pulse Ox 99% on R/A; vg1 10:00 BP 97 / 70; Pulse 80; Resp 18; Pulse Ox 100% on R/A; vg1 10:30 BP 115 / 89; Pulse 104; Resp 18; Pulse Ox 100% on R/A; vg1 11:00 BP 106 / 76; Pulse 84; Resp 18; Pulse Ox 100% on R/A; vg1 MDM: 08:[address] [facility] 10:32 Differential diagnosis: Data reviewed: vital signs, nurses notes, lab test result(s), [facility] radiologic studies, ultrasound. 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 Counseling: I had a detailed discussion with the patient and/or guardian regarding: the historical points, exam findings, and any diagnostic results supporting the discharge/admit diagnosis, lab results, radiology results. 06/10 08:07 Order name: Quantitative Hcg; Complete Time: 10:02 [facility] 06/10 08:07 Order name: Abo/rh Typing [facility] 06/10 08:07 Order name: Basic Metabolic Panel; Complete Time: 10:02 [facility] 06/10 08:07 Order name: CBC with Diff; Complete Time: 10:02 [facility] 06/10 08:07 Order name: Urine Culture [facility] 06/10 09:07 Order name: Urine Dipstick--Ancillary (enter results); Complete Time: 10:02 06/10 09:07 Order name: Urine --Ancillary (enter results); Complete Time: 10:02 06/10 10:51 Order name: Rhogam EDMS 06/10 08:07 Order name: Urine Test (obtain specimen); Complete Time: 08:37 [facility] 06/10 08:07 Order name: IV Saline Lock; Complete Time: 08:37 [facility] 06/10 08:07 Order name: Labs collected and sent; Complete Time: 08:37 [facility] 06/10 08:07 Order name: NPO; Complete Time: 08:37 [facility] 06/10 08:07 Order name: Urine Dipstick-Ancillary (obtain specimen); Complete Time: 08:37 [facility] 06/10 08:07 Order name: US Transvaginal Ob; Complete Time: 10:30 [facility] 06/10 08:47 Order name: Pelvic Exam Setup; Complete Time: 09:07 [facility] 06/10 11:00 Order name: Antibody Screen EDMS 06/10 11:30 Order name: ABO/RH no charge EDMS Administered Medications: 08:25 Drug: NS 0.9% 1000 ml Route: IV; Rate: 1 bolus; Site: right antecubital; vg1 10:30 Follow up: IV Status: Completed infusion; IV Intake: 1000ml vg1 11:53 Not Given (Patient Refused): RhoGAM (Human) 300 mcg IM once vg1 Disposition: 06/10/20 10:34 Discharged to Home. Impression: Threatened , Blighted ovum and nonhydatidiform mole, Missed . - Condition is Stable. - Discharge Instructions: Threatened Miscarriage, Vaginal Bleeding During , First Trimester, Threatened Miscarriage, [id number], Pelvic Rest, Blighted Ovum. - Prescriptions for Vitamin 27- 0.8 mg Oral Tablet - take 1 tablet by ORAL route once daily; 30 tablet. - Medication Reconciliation Form, Thank You Letter, Antibiotic Education, Prescription Opioid Use form. - Follow up: Private Physician; When: 2 - 3 days; Reason: Recheck today's complaints, Continuance of care, Re-evaluation by your physician. Follow up: Preet Fernando MD; When: 2 - 3 days; Reason: Recheck today's complaints, Re-evaluation by your physician. - Problem is new. - Symptoms have improved. Signatures: Dispatcher [employer] EDMS Gualberto Nolen MD MD cha Williams, Irene, RN Mirella Lunsford RN RN vg1 Corrections: (The following items were deleted from the chart) 10:57 10:30 RHOGAM+[id number] ordered. EDMS EDMS 10:57 10:31 Rh Typing ordered. EDMS EDMS 10:57 10:31 Antibody Screen ordered. EDMS EDMS 10:57 10:31 Fetalscreen ordered. EDMS EDMS 10:57 10:31 Cord Rh type ordered. [facility] EDMT 11:00 10:51 Rh Typing ordered. [facility] EDMT 12:04 10:34 06/10/2020 10:34 Discharged to Home. Impression: Threatened ; Blighted vg1 ovum and nonhydatidiform mole; Missed . Condition is Stable. Forms are Medication Reconciliation Form, Thank You Letter, Antibiotic Education, Prescription Opioid Use. Follow up: Private Physician; When: 2 - 3 days; Reason: Recheck today's complaints, Continuance of care, Re-evaluation by your physician. Follow up: Preet Fernando; When: 2 - 3 days; Reason: Recheck today's complaints, Re-evaluation by your physician. Problem is new. Symptoms have improved. tad
[2020-06-10 14:57] VITALS: TEMP 98
[2020-06-10 15:00] VITALS: O2SAT 100
[2020-06-10 15:06] VITALS: BP 106/76
== END 2020-06-10 12:04 | disposition home or self-care (01) ==
LOC: ER 07:46
DX: O02.0 Blighted ovum and nonhydatidiform mole (principal); O08.9 Unspecified complication following an ectopic and molar pregnancy
CPT/HCPCS: 96361; 87088; 85025; 87086; 80048; 36415; 86900; 86850; 81025; 86901; 84702; 81003; 76817; 96360; 99284; J7030